=== PATIENT | female | born 1960 | race Caucasian/White ===

== ENCOUNTER 2017-10-03 05:39 | Inpatient (IN) | payer OTHER, MEDICAID ==
[2017-10-03] MEDS ORDERED: TRANEXAMIC ACID 1,000 MG in NS (SYRINGE) 50 ML IV ONE (06:00)
[2017-10-03] MEDS ORDERED: fentaNYL 100 MCG/2 ML INJ IT ONE (06:04)
[2017-10-03] MEDS ORDERED: ceFAZolin 2 GM/SWFI 2 GM/20 ML SYR IVP ONE ×2 (06:04→14:00)
[2017-10-03] MEDS ORDERED: LIDOCAINE 1% 2 ML INJ ID PRN (06:07)
[2017-10-03] MEDS ORDERED: LR 1,000 ML IV ONE (06:07)
[2017-10-03] MEDS ORDERED: LIDOCAINE 1% 2 ML INJ ONE (06:09)
[2017-10-03] MEDS ORDERED: THROMBIN (BOVINE) 20,000 UNIT VIAL TP ONE (06:32)
[2017-10-03] MEDS ORDERED: BUPIVACAINE 0.25% 30 ML SDV ONE (06:32)
[2017-10-03] MEDS ORDERED: BACITRACIN 50,000 UNITS/10 ML SYR IRR ONE ×2 (06:32→08:25)
[2017-10-03] MEDS ORDERED: CHLORHEXIDINE GLUC HIBICLENS 118 ML BTL TP ONE (06:33)
[2017-10-03] MEDS ORDERED: CITRATE DEXTROSE SOLN 500 ML BAG ONE (06:33)
[2017-10-03] MEDS ORDERED: REMIFENTANIL HCL 1 MG VIAL ONE ×2 (06:44→09:54)
[2017-10-03] MEDS ORDERED: PROPOFOL 200 MG/20 ML VIAL ONE (06:45)
[2017-10-03] MEDS ORDERED: fentaNYL 100 MCG/2 ML INJ ONE ×4 (06:45→11:23)
[2017-10-03] MEDS ORDERED: PROPOFOL/EMULSION 500 MG/50 ML BOTTLE IV ONE ×2 (06:45→09:54)
[2017-10-03] MEDS ORDERED: LIDOCAINE 2% 100 MG/5 ML SYR ONE (06:51)
--- NOTE | 2017-10-03 07:02 | PDANEPAE ---
ANE History of Present Illness lumbar radiculopathy here for removal of hardware and TLIF ANE Past Medical History - Cardiovascular History Hx Hypertension: No Hx Arrhythmias: No Hx Chest Pain: No Hx Coronary Artery / Peripheral Vascular Disease: No Hx CHF / Valvular Disease: No Hx Palpitations: No - Pulmonary History Hx COPD: No Hx Asthma/Reactive Airway Disease: No Hx Recent Upper Respiratory Infection: No Hx Oxygen in Use at Home: No Hx Sleep Apnea: No Sleep Apnea Screening Result - Last Documented: Negative - Neurologic History Hx Cerebrovascular Accident: No Hx Seizures: No Hx Dementia: No Neurologic History Comment: chronic pain. Lumbar Radiculopathy - Endocrine History Hx Diabetes: No - Renal History Hx Renal Disorders: No - Liver History Hx Hepatic Disorders: No - Neurological & Psychiatric Hx Hx Neurological and Psychiatric Disorders: Yes Neurological / Psychiatric History Comment: low back pain radiates down bilat legs-R leg worse. Depression - Cancer History Hx Cancer: No - Congenital Disorder History Hx Congenital Disorders: No - GI History Hx Gastrointestinal Disorders: No - Other Health History Other Health History: none - Chronic Pain History Chronic Pain: Yes (back) - Surgical History Prior Surgeries: L5/S1 fusion. hysterectomy ANE Review of Systems Review of Systems: - Exercise capacity Exercise capacity: >=4 METS METS (RN): 4 METS ANE Patient History - Allergies Allergies/Adverse Reactions: meperidine [From Demerol] Allergy (Verified 09/16/17 10:34) Other-Enter Comments - Home Medications Home medications: home medication list seen and reviewed Home Medications: Cholecalciferol Vit D3 [Vitamin D3 2000 units tab (OTC)] 10,000 units PO DAILY 09/11/17 [Last Taken Unknown] DULoxetine [Cymbalta 60 MG (*)] 60 mg PO DAILY 09/11/17 [Last Taken Unknown] Gabapentin [Neurontin 400 MG (*)] 800 - 1,200 mg PO HS 09/11/17 [Last Taken Unknown] HYDROcodone/APAP 10/325 [[place] 10/325 (*)] 1 tab PO BID PRN 09/11/17 [Last Taken Unknown] Herbals/Supplements -Info Only 1 ea PO DAILY 09/11/17 [Last Taken Unknown] - NPO status NPO Since - Liquids (Date): 10/03/17 NPO Since - Liquids (Time): 04:00 NPO Since - Solids (Date): 10/02/17 NPO Since - Solids (Time): 19:00 - Anes Hx Anes Hx: no prior problems - Smoking Hx Smoking Status: Former smoker - Alcohol Use Alcohol Use: Rarely - Family Anes Hx Family Anes Hx: none ANE Labs/Vital Signs - Vital Signs Blood Pressure: 166/89 Heart Rate: 64 Respiratory Rate: 14 O2 Sat (%): 96 Height: 157.48 cm Weight: 65.771 kg ANE Physical Exam - Airway Neck exam: FROM Mallampati Score: Class 2 Mouth exam: dentures - Pulmonary Pulmonary: no respiratory distress, clear to auscultation - Cardiovascular Cardiovascular: regular rate and rhythym, no murmur, rub, or gallop - ASA Status ASA Status: II ANE Anesthesia Plan Anesthesia Plan: general endotracheal anesthesia Total IV Anesthesia: Yes
[2017-10-03] MEDS ORDERED: MIDAZOLAM 2 MG/2 ML VIAL IVP ONE (07:04)
[2017-10-03] MEDS ORDERED: ACETAMINOPHEN 500 MG TAB PO ONE (07:05)
[2017-10-03] MEDS ORDERED: GABAPENTIN 300 MG CAP PO ONE (07:05)
--- NOTE | 2017-10-03 07:06 | PDHPUP ---
History & Physical Update H&P update statement: This history and physical update is based on an assessment of the patient which was completed after admission or registration (within 24 hours), but prior to the surgery/procedure. H&P update: H&P reviewed & patient examined, no change in patient's condition since H&P completed
[2017-10-03] MEDS ORDERED: epHEDrine SULFATE 10 MG/ML SYR ONE (07:54)
[2017-10-03] MEDS ORDERED: ONDANSETRON 4 MG/2 ML VIAL ONE ×2 (08:44→11:24)
[2017-10-03] MEDS ORDERED: DEXAMETHASONE 4 MG/ML VIAL ONE (08:44)
[2017-10-03] MEDS ORDERED: morphINE PF 5 MG/10 ML INJ ONE (09:53)
[2017-10-03] MEDS: morphINE PF 5 MG/10 ML INJ IT ONE ×2 (10:19→10:32)
[2017-10-03] MEDS ORDERED: ceFAZolin 1 GM VIAL ONE (10:41)
[2017-10-03] MEDS ORDERED: LACTULOSE 20 GM/30 ML UDCUP PO PRN (11:02)
[2017-10-03] MEDS ORDERED: ONDANSETRON DISINTEGRATING 4 MG TAB PO PRN (11:02)
[2017-10-03] MEDS ORDERED: METHOCARBAMOL 750 MG TAB PO PRN (11:02)
[2017-10-03] MEDS ORDERED: BISACODYL 10 MG SUPP PR PRN (11:02)
[2017-10-03] MEDS ORDERED: NALOXONE HCL 0.4 MG/ML INJ IVP PRN ×2 (11:02→11:12)
[2017-10-03] MEDS ORDERED: diphenhydrAMINE 25 MG CAP PO PRN (11:02)
[2017-10-03] MEDS ORDERED: MAGNESIUM HYDROXIDE 30 ML UDCUP PO PRN (11:02)
[2017-10-03] MEDS ORDERED: morphINE PCA 30 MG/30 ML PCA IV PRN (11:02)
--- NOTE | 2017-10-03 11:07 | SOAPPROG ---
SOAP Progress Note Assessment/Plan: Assessment: 57 yo F sp L5/S1 hardware removal, L4/5 TLIF with L4-S1 fusion Plan: stable LSO brace when out of bed lovenox starts pOD #1 please call with neuro changes 10/03/17 11:06 Subjective: + back pain, no leg pain Objective: Vital Signs Temp Pulse Resp BP Pulse Ox 36.6 C 64 14 166/89 H 96 10/03/17 10:49 10/03/17 10:49 10/03/17 10:49 10/03/17 10:49 10/03/17 10:49 somnolent PERRL LAKHWINDER x4 + light touch ICD10 Worksheet Patient Problems: Problems Problem Status Onset Fusion of spine of lumbar region Acute - ICD10 Problem Qualifiers (1) Fusion of spine of lumbar region
[2017-10-03] MEDS ORDERED: DIAZEPAM 5 MG/ML 1 ML SYR IVP PRN (11:12)
[2017-10-03] MEDS ORDERED: oxyCODONE IR 5 MG TAB PO PRN (11:12)
[2017-10-03] MEDS ORDERED: ONDANSETRON 4 MG/2 ML VIAL IVP PRN (11:12)
[2017-10-03] MEDS ORDERED: LR 500 ML IV PRN (11:12)
--- NOTE | 2017-10-03 11:12 | POSTANESTH ---
Post Anesthetic Evaluation Cardiovascular Status: Normal, Stable, Similar to Pre-Op Cond Respiratory Status: Normal, Stable, Similar to Pre-op Cond. Level of Consciousness/Mental Status: Can Participate in Eval, Alert and Oriented Pain Control: Adequate, Prn Tx Ordered Nausea/Vomiting Control: Adequate, Prn Tx Ordered Complications Possibly Related to Anesthesia: None Noted
[2017-10-03] MEDS ORDERED: NS W/ 20 KCl/L 1,000 ML IV SCH (11:15)
[2017-10-03] MEDS: ONDANSETRON 4 MG/2 ML VIAL IVP PRN ×2 (11:34→15:36)
[2017-10-03] MEDS: fentaNYL 100 MCG/2 ML INJ IVP PRN ×3 (11:34→11:58)
[2017-10-03] MEDS ORDERED: HYDROmorphONE/DILAUDID 2 MG/ML INJ ONE (11:46)
[2017-10-03] MEDS: HYDROmorphONE/DILAUDID 2 MG/ML INJ IVP PRN ×2 (11:48→11:58)
--- NOTE | 2017-10-03 11:57 | PDMN ---
Medical Necessity Medical necessity: Patient meets inpatient criteria per PA note and [facility] [place] S-530 Removal of Posterior Spinal Instrumentation and Musculoskeletal Surgery or Procedure GRG (CPT 38071, [id number] Medicare inpatient-only surgery.). .
--- NOTE | 2017-10-03 11:59 | GOP ---
[f rep st] OPERATIVE REPORT DATE OF OPERATION: 10/03/2017 SURGEON: Sharif Wiggins MD TRAVEL INSURANCE AGENT: Alex Ahumada PA-C. ANESTHESIA: General endotracheal. PREOPERATIVE DIAGNOSIS: Left S1 malpositioned hardware/pedicle screw with prior L5-S1 instrumented d ecompression and fusion. Severe adjacent level degeneration and critical spinal stenosis, with severe bilateral lateral recess impingement at L4-5. Intractable back and right greater than left lower ex tremity radicular symptoms. Failed conservative care. POSTOPERATIVE DIAGNOSIS: Left S1 malpositioned hardware/pedicle screw with prior L5-S1 instrumented decompression and fusion. Severe adjacent level degeneration and critical spinal stenosis, with sever e bilateral lateral recess impingement at L4-5. Intractable back and right greater than left lower e xtremity radicular symptoms. Failed conservative care. PROCEDURE PERFORMED: Removal of L5-S1 posterior nonsegmental (pedicle screw) fixation with explorati on of spinal fusion and redo decompression at L5-S1. Placement of L4 through S1 posterior segmental (pedicle screw and axle device) fixation and posterolateral fusion with local autograft, and bone mor phogenic protein. L4-5 far lateral transpedicular decompression with bilateral central canal and late ral recess decompression. L4-5 posterior/transforaminal lumbar interbody fusion with 2 structural PE EK interbody spacers, local autograft and bone morphogenic protein. Use of intraoperative microscopy , fluoroscopy and computer volumetric stereotactic navigation with intraoperative neurophysiologic te sting. Injection of intrathecal narcotic analgesics and subcutaneous and intramuscular local anesthe edinson for postoperative pain control. FINDINGS: ESTIMATED BLOOD LOSS: 150 cc. INDICATIONS: The patient is a 57-year-old woman with intractable bilateral lower extremity radicular pain partially secondary to severe adjacent level degeneration, critical spinal stenosis, and latera l recess impingement at the L4-5 level, and malpositioned hardware at the S1 level. She presents now for removal of the malpositioned hardware and extension of the fusion with re-instrumentation at L4 through S1. DESCRIPTION OF PROCEDURE: After informed consent was obtained, the patient was taken to the operatin g room and placed in the prone position on the Paul table. The lumbosacral area was prepped and d raped in a sterile fashion. After fluoroscopic localization of the correct levels, the subcutaneous and intramuscular tissues were infiltrated with local anesthesia. A midline linear incision was then created from L4 through S1. This was carried down to the fascial layer, which was then incised usin g monopolar electrocautery and carried in the subperiosteal plane along the spinous processes and out the lamina bilaterally. Intraoperative fluoroscopy was again utilized to verify the correct levels, and the prior instrumentation at L5-S1 was carefully removed and the prior holes palpated. The left S1 screw was severely medial. Following this, a redo decompression was performed at the L5-S1 level with a new right-sided far lateral transpedicular decompression with complete unroofing of the facet joint at the L4-5 level and extensive decompression of the central canal and bilateral lateral reces s. Following a thorough decompression at both levels, the [employer] neuronavigational system were brou ght in and pedicle screws were placed at L4, L5 and S1 bilaterally. Each individual screw was tested neurophysiologically with monopolar electrostimulation and interpretation of the potentials by the dae hare. A right S1 screw was not placed. Following intraoperative neurophysiologic testing, rods we re placed across the L4-5 interspace under distraction, during which time a complete diskectomy was p erformed at the L4-5 level with preparation of the endplates and placement of two 11 mm structural PE EK interbody spacers, local autograft and bone morphogenic protein for an L4-5 posterior/transforamin al lumbar interbody fusion. The shorter rods were removed and longer rods placed extending from L4 t hrough S1 on the left and L4-5 on the right. A slight amount of compression was placed across the L4 -5 interspace in order to facilitate bony union and to minimize the potential for posterior graft glory ration. The remaining local autograft and bone morphogenic protein was then placed out laterally fro m L4 through S1 for a posterolateral fusion from L4 through S1. 200 mcg of Duramorph along with 50 m cg of fentanyl were injected intrathecally. An axle device was placed in order to hopefully avoid a transitional kyphosis. One of the pedicle screws at the L4 level was at the very edge of the endplat e at L4-5 but I looked at this through multiple angles using the C-arm and felt that it was in the pa tient's best interest to leave it in place even though it was very close. I felt that it would do mo re harm removing it and trying to replace it, and she would have a weakened screw, and I did not thin k that this would cause any problems anyway. Following this, the wound was copiously irrigated with antibiotic irrigation. 200 mcg of Duramorph along with 50 mcg of fentanyl were injected intrathecally for postoperative pain control. The subcutaneous and intramuscular tissues were re-infiltrated with local anesthesia. A drain was placed and the wound was closed in a layered fashion using interrupte d Vicryl sutures followed by Steri-Strips on the skin. COMPLICATIONS: None. DISPOSITION: The patient is currently in the process of being repositioned for extubation. /[id number]/MODL
[2017-10-03] MEDS ORDERED: ceFAZolin 2 GM/DEXTROSE 100 ML IV SCH (14:00)
[2017-10-03] MEDS: ACETAMINOPHEN 500 MG TAB PO SCH ×2 (17:27→22:40)
[2017-10-03] MEDS: POLYETHYLENE GLYCOL 3350 17 GM PKT PO SCH ×2 (17:28→22:41)
[2017-10-03] MEDS ORDERED: METOCLOPRAMIDE 10 MG/2 ML VIAL IVP PRN (17:30)
[2017-10-03] MEDS ORDERED: PROMETHAZINE HCL 25 MG/ML INJ IVP PRN (18:20)
[2017-10-03] MEDS ORDERED: HYDROmorphone HCL/NS 0.5 MG/ML SYR IVP PRN (18:21)
[2017-10-03] MEDS ORDERED: SCOPOLAMINE HYDROBROMIDE 1 MG/3 DAYS PATCH TD SCH (18:30)
[2017-10-03] MEDS: FAMOTIDINE 20 MG TAB PO SCH (20:32)
[2017-10-03] MEDS: SENNOSIDES/DOCUSATE SODIUM TAB PO SCH (20:33)
[2017-10-03] MEDS ORDERED: GABAPENTIN 400 MG CAP PO SCH (21:00)
[2017-10-03] MEDS: morphINE SR 15 MG TAB PO SCH (23:50)
[2017-10-04] MEDS ORDERED: POTASSIUM Cl (KCl) 20 MEQ in NS 1,000 ML IV SCH (04:00)
[2017-10-04] MEDS: ACETAMINOPHEN 500 MG TAB PO SCH ×2 (05:07→15:03)
[2017-10-04 05:22] LABS: PLATELET COUNT 193 10^3/uL (150-400)
--- NOTE | 2017-10-04 07:50 | SOAPPROG ---
SOAP Progress Note Assessment/Plan: Assessment: 57 yo female POD #1 sp L5/S1 hardware removal and L4/5 TLIF and L4-S1 fusion doing well, no neuro deficits pain well controlled Plan: PT/OT LSO when OOB Xrays today 10/04/17 07:48 Subjective: awake, alert, comfortable. Denies numbenss tingling or weakness. Eager to go home today. Objective: Vital Signs Temp Pulse Resp BP Pulse Ox 36.4 C 59 L 16 97/58 L 95 10/04/17 04:00 10/04/17 04:00 10/04/17 04:00 10/04/17 04:00 10/04/17 04:00 Laboratory Results 10/04/17 04:55 10/04/17 04:55 10/03/17 10/04/17 10/05/17 05:59 05:59 05:59 Intake Total 2765 Output Total 2820 Balance -55 Neuro: ODELL, sens +LT follows commands Incision: Dressing dry ROSETTA: 370 ICD10 Worksheet Patient Problems: Problems Problem Status Onset Fusion of spine of lumbar region Acute
[2017-10-04] MEDS: morphINE SR 15 MG TAB PO SCH (08:27)
[2017-10-04] MEDS: FAMOTIDINE 20 MG TAB PO SCH (08:27)
[2017-10-04] MEDS: POLYETHYLENE GLYCOL 3350 17 GM PKT PO SCH (08:27)
[2017-10-04] MEDS: SENNOSIDES/DOCUSATE SODIUM TAB PO SCH (08:27)
[2017-10-04] MEDS ORDERED: ENOXAPARIN 40 MG/0.4 ML SYR SC SCH (09:00)
[2017-10-04] MEDS ORDERED: DULoxetine 60 MG CAP PO SCH (09:00)
[2017-10-04] MEDS: oxyCODONE IR 5 MG TAB PO PRN ×2 (11:18→15:03)
[2017-10-04 11:40] VITALS: BP 121/60
--- NOTE | 2017-10-04 11:52 | ASMTCMCOM ---
CM Note CM Note Notes: Reviewed chart and met w/pt. Pt has good support at home from daughter whom she lives with and also her sister is coming from out of state to stay with her and help out. Pt will dc home w/family, no CM needs. Date Signed: 10/04/2017 11:52 AM Electronically Signed By:Caityln Warren RN
== END 2017-10-04 15:41 | disposition home or self-care (01) | DRG 455 ==
LOC: F3N 05:39 → OBSVTOIN 05:39 → F3N 12:35
PROVIDERS: ADMIT Neurological Surgery; ATTEND Neurological Surgery
PROC: 01NB0ZZ Release Lumbar Nerve, Open Approach (ICD-10-PCS; principal; 2017-10-03 07:15)
PROC: 0ST20ZZ Resection of Lumbar Vertebral Disc, Open Approach (ICD-10-PCS; principal; 2017-10-03 07:15)
PROC: 0QP004Z Removal of Internal Fixation Device from Lumbar Vertebra, Open Approach (ICD-10-PCS; principal; 2017-10-03 07:15)
PROC: 0SG3071 Fusion of Lumbosacral Joint with Autologous Tissue Substitute, Posterior Approach, Posterior Column, Open Approach (ICD-10-PCS; principal; 2017-10-03 07:15)
PROC: 0SG00AJ Fusion of Lumbar Vertebral Joint with Interbody Fusion Device, Posterior Approach, Anterior Column, Open Approach (ICD-10-PCS; principal; 2017-10-03 07:15)
PROC: 0SG0071 Fusion of Lumbar Vertebral Joint with Autologous Tissue Substitute, Posterior Approach, Posterior Column, Open Approach (ICD-10-PCS; principal; 2017-10-03 07:15)
PROC: 4A1004G Monitoring of Central Nervous Electrical Activity, Intraoperative, Open Approach (ICD-10-PCS; principal; 2017-10-03 07:15)
PROC: 00NY0ZZ Release Lumbar Spinal Cord, Open Approach (ICD-10-PCS; principal; 2017-10-03 07:15)
PROC: 0QP104Z Removal of Internal Fixation Device from Sacrum, Open Approach (ICD-10-PCS; principal; 2017-10-03 07:15)
PROC: 8E0WXBF Computer Assisted Procedure of Trunk Region, With Fluoroscopy (ICD-10-PCS; principal; 2017-10-03 07:15)
DX: T84.428A Displacement of other internal orthopedic devices, implants and grafts, initial encounter (principal); M51.16 Intervertebral disc disorders with radiculopathy, lumbar region; Z98.1 Arthrodesis status
CPT/HCPCS: 97116-GP; 97161-GP; 97166-GO; C1713; J0171; J0690; J1100; J1170; J1650; J2001; J2250; J2270; J2274; J2405; J2550; J2704; J2765; J3010; J3480; J7060